=== PATIENT | female | born 1950 | race Asian ===

== ENCOUNTER 2023-06-18 13:48 | Inpatient (IN) | payer MEDICARE ==
[~2023-06-18] VITALS: Ht 160 cm; Wt 77.1 kg
[2023-06-18] MEDS ORDERED: AZAT50TA18 PO (14:01)
[2023-06-18] MEDS ORDERED: AMLO10TA59 PO (14:01)
[2023-06-18] MEDS ORDERED: METF-440 PO (14:01)
[2023-06-18] MEDS ORDERED: ATOR10TA PO (14:01)
[2023-06-18] MEDS ORDERED: DULO60CA45 PO (14:01)
[2023-06-18] MEDS ORDERED: HYDR-894 PO (14:01)
[2023-06-18] MEDS ORDERED: CEPH500C2 PO (14:01)
[2023-06-18] MEDS ORDERED: GABA-532 PO (14:01)
[2023-06-18 15:05] LABS: CALCIUM 9.2 mg/dL (8.5-10.1); CARBON DIOXIDE 18 mmol/L (21-32); CHLORIDE 99 mmol/L (98-107); CREATININE 0.9 mg/dL (0.6-1.3); GLUCOSE 118 mg/dL (74-106); SODIUM SERUM 137 mmol/L (136-145); UREA NITROGEN, BLOOD 6 mg/dL (7-18)
[2023-06-18 15:06] LABS: POTASSIUM 2.8 mmol/L (3.5-5.1)
[2023-06-18 15:07] LABS: BASOPHILS % (AUTO) 0.4 % (0.0-2.0); DIFFERENTIAL COMMENT 0; EOSINOPHILS # (AUTO) 0.1 K/uL (0.0-0.7); EOSINOPHILS % (AUTO) 0.8 % (0.0-7.0); HEMATOCRIT 44.9 % (31.2-41.9); HEMOGLOBIN 14.7 g/dL (10.9-14.3); LYMPHOCYTES # (AUTO) 1.1 K/uL (0.8-4.8); LYMPHOCYTES % (AUTO) 11.2 % (20.5-51.5); MEAN CORPUSCULAR HEMOGLOBIN 30.7 uug (24.7-32.8); MEAN CORPUSCULAR HGB CONC 33 g/dL (32.3-35.6); MEAN CORPUSCULAR VOLUME 93.6 fL (75.5-95.3); MONOCYTES # (AUTO) 0.7 K/uL (0.1-1.30); NEUTROPHILS # (AUTO) 7.9 K/uL (1.8-8.9); NEUTROPHILS % (AUTO) 80.6 % (38.5-71.5); PLATELET COUNT (AUTO) 502 K/uL (179-408); RED CELL DISTRIBUTION WIDTH 16.2 % (12.3-17.7); WHITE BLOOD COUNT (AUTO) 9.7 K/uL (3.8-11.8)
[2023-06-18 15:20] LABS: ALANINE AMINOTRANSFERASE < 6 U/L (14-59); ALBUMIN 2.7 g/dL (3.4-5.0); ALKALINE PHOSPHATASE 82 U/L (50-136); ASPARTATE AMINOTRANSFERASE 12 U/L (15-37); BILIRUBIN,DIRECT 0.3 mg/dL (0.0-0.2); BILIRUBIN,TOTAL 0.7 mg/dL (0.2-1.0); LIPASE 11 U/L (16-77)
[2023-06-18] MEDS: IV NORMAL SALINE 500 ML BAG IV ONE (15:25)
[2023-06-18] MEDS ORDERED: POTASSIUM CHLORIDE 200 ML ONE (16:41)
[2023-06-18] MEDS ORDERED: METOCLOPRAMIDE HCL 10 MG/2 ML VIAL ONE (16:41)
[2023-06-18] MEDS ORDERED: diphenhydrAMINE 50 MG/1 ML VIAL ONE (16:41)
[2023-06-18] MEDS: diphenhydrAMINE 50 MG/1 ML VIAL IV ONE (16:55)
[2023-06-18] MEDS: POTASSIUM CHLORIDE 50 ML IV SCH (16:56)
[2023-06-18] MEDS: METOCLOPRAMIDE HCL 10 MG/2 ML VIAL IV ONE (16:56)
[2023-06-18] MEDS: IV NS 1000 ML 1,000 ML IV ONE (16:56)
[2023-06-18] MEDS ORDERED: ONDANSETRON 4 MG/2 ML VIAL IV PRN (20:00)
[2023-06-18] MEDS ORDERED: POTASSIUM CHLORIDE 20 MEQ in IV 1/2NS 1000 ML 1,000 ML IV PRN (20:00)
[2023-06-18] MEDS ORDERED: MORPHINE SULFATE 2 MG/1 ML DISP.SYRIN IV PRN (20:00)
[2023-06-18] MEDS ORDERED: MAGNESIUM SULFATE/D5W 200 ML ONE (20:34)
[2023-06-18] MEDS: POTASSIUM CHLORIDE 20 MEQ TAB.PRT.SR PO ONE (21:00)
[2023-06-18 21:20] VITALS: BP 155/86; TEMP 98.7; O2SAT 97
[2023-06-18] MEDS ORDERED: IV 1/2 NS + KCL 20 MEQ BAG 1,000 ML ONE (21:28)
[2023-06-18] MEDS: METOPROLOL TARTRATE 25 MG TABLET PO SCH (21:44)
[2023-06-18] MEDS: ATORVASTATIN 10 MG TABLET PO SCH (21:46)
[2023-06-18] MEDS: MAGNESIUM SULFATE 2 GM in IV DEXTROSE 5% 100 ML IV ONE (21:49)
[2023-06-18] MEDS: IV 1/2 NS + KCL 20 MEQ BAG 1,000 ML IV PRN (21:50)
[2023-06-18] MEDS ORDERED: PIPERACILLIN SODIUM/TAZOBACTAM 3.375 G in IV DEXTROSE 5% 50 ML IV SCH (22:00)
[2023-06-18] MEDS ORDERED: PIPERACILLIN SODIUM/TAZO 3.375 GM VIAL ONE (22:42)
[2023-06-18] MEDS: PIPERACILLIN SODIUM/TAZOBACTAM 3.375 G in IV DEXTROSE 5% 50 ML IV SCH (22:49)
[2023-06-19] VITALS (7 sets, daily range): BP systolic 101–133; BP diastolic 51–65; TEMP 98.1–98.9; O2SAT 94–95
[2023-06-19] MEDS ORDERED: PIPERACILLIN SODIUM/TAZO 3.375 GM VIAL ONE (04:58)
[2023-06-19 06:13] LABS: *CLARITY,URINE CLEAR (CLEAR); *COLOR,URINE YELLOW (YELLOW); *KETONES,URINE 4+ (NEGATIVE); *PROTEIN,URINE 2+ (NEGATIVE); *UROBILINOGEN,URINE 0.2 E.U./dl (NORMAL); LEUKOCYTE ESTERASE ,URINE 1+ (NEGATIVE); NITRITE, URINE NEGATIVE (NEGATIVE); UGLUCOSE NEGATIVE (NEGATIVE)
[2023-06-19] MEDS: PANTOPRAZOLE SODIUM 40 MG TABLET.DR PO SCH (06:17)
[2023-06-19 06:40] LABS: *BILIRUBIN,URIN 2+ (NEGATIVE); *BLOOD, URINE TRACE (NEGATIVE)
[2023-06-19 06:48] LABS: BACTERIA,URINE FEW /HPF (NONE SEEN); SQUAMOUS EPITHELIAL CELL,UR FEW /HPF (NONE SEEN); WBC,URINE 50-80 /HPF (0-3); YEAST,URINE BUDDING YEAST /HPF (NONE SEEN)
[2023-06-19 07:53] LABS: BASOPHILS # (AUTO) 0.1 K/UL (0.0-0.2); BASOPHILS % (AUTO) 0.5 % (0.0-2.0); EOSINOPHILS # (AUTO) 0.2 K/uL (0.0-0.7); EOSINOPHILS % (AUTO) 1.8 % (0.0-7.0); HEMATOCRIT 36.2 % (31.2-41.9); HEMOGLOBIN 12.2 g/dL (10.9-14.3); LYMPHOCYTES % (AUTO) 9.3 % (20.5-51.5); MEAN CORPUSCULAR HEMOGLOBIN 31.1 uug (24.7-32.8); MEAN CORPUSCULAR HGB CONC 34 g/dL (32.3-35.6); MEAN CORPUSCULAR VOLUME 92.3 fL (75.5-95.3); MONOCYTES # (AUTO) 1.2 K/uL (0.1-1.30); MONOCYTES % (AUTO) 10.9 % (0.0-11.0); NEUTROPHILS # (AUTO) 8.4 K/uL (1.8-8.9); NEUTROPHILS % (AUTO) 77.5 % (38.5-71.5); PLATELET COUNT (AUTO) 429 K/uL (179-408); RED BLOOD CELL COUNT(AUTO) 3.92 MIL/uL (3.63-4.92); RED CELL DISTRIBUTION WIDTH 16.2 % (12.3-17.7); WHITE BLOOD COUNT (AUTO) 10.8 K/uL (3.8-11.8)
[2023-06-19] MEDS: METFORMIN HCL 500 MG TABLET PO SCH (08:01)
[2023-06-19 08:13] LABS: DIFFERENTIAL COMMENT 1
[2023-06-19 08:18] LABS: ALBUMIN 2.1 g/dL (3.4-5.0); ALKALINE PHOSPHATASE 69 U/L (50-136); ASPARTATE AMINOTRANSFERASE 9 U/L (15-37); CALCIUM 8.6 mg/dL (8.5-10.1); CARBON DIOXIDE 20 mmol/L (21-32); CHLORIDE 101 mmol/L (98-107); GLUCOSE 95 mg/dL (74-106); MAGNESIUM 1.4 mg/dL (1.8-2.4); PHOSPHOROUS 2.2 mg/dL (2.5-4.9); SODIUM SERUM 136 mmol/L (136-145); TOTAL PROTEIN, SERUM 6.6 g/dL (6.4-8.2); UREA NITROGEN, BLOOD 5 mg/dL (7-18)
[2023-06-19 08:23] LABS: THYROID STIMULATING HORMONE 1.206 mIU/mL (0.358-3.740)
[2023-06-19 08:57] LABS: ALANINE AMINOTRANSFERASE < 6 U/L (14-59)
[2023-06-19] MEDS: GABAPENTIN 300 MG CAPSULE PO SCH (09:01)
[2023-06-19] MEDS: AMLODIPINE 10 MG TABLET PO SCH (09:01)
[2023-06-19] MEDS: DULOXETINE 60 MG CAPSULE.DR PO SCH (09:01)
[2023-06-19] MEDS: POTASSIUM CHLORIDE 50 ML IV SCH (09:40)
[2023-06-19] MEDS: MAGNESIUM SULFATE/D5W 100 ML IV SCH (09:40)
[2023-06-19 10:17] LABS: POTASSIUM 2.7 mmol/L (3.5-5.1)
[2023-06-19] MEDS: ENOXAPARIN SODIUM 40 MG/0.4 ML DISP.SYRIN SQ SCH (10:58)
[2023-06-19] MEDS ORDERED: ATOR40TA PO (11:29)
[2023-06-19] MEDS ORDERED: DIPH50CA38 PO (11:30)
[2023-06-19] MEDS ORDERED: GABA300C PO (11:33)
[2023-06-19] MEDS ORDERED: ERGO500040 PO (11:34)
[2023-06-19] MEDS: ACETAMINOPHEN 325 MG TABLET PO PRN (13:14)
[2023-06-19 14:04] LABS: *OCCULT BLOOD STOOL POSITIVE (NEGATIVE)
[2023-06-19] MEDS: PIPERACILLIN SODIUM/TAZOBACTAM 3.375 G in IV DEXTROSE 5% 100 ML IV SCH (14:29)
[2023-06-19] MEDS: POTASSIUM PHOSPHATE MM 15 MMOL in IV NORMAL SALINE 250 ML IV ONE (14:29)
[2023-06-19] MEDS: ATORVASTATIN 40 MG TABLET PO SCH (20:34)
[2023-06-19] MEDS: FLUCONAZOLE 100 MG TABLET PO SCH (22:15)
[2023-06-19] MEDS: METRONIDAZOLE 500 MG TABLET PO SCH (22:15)
[2023-06-20] VITALS: BP 104/45; TEMP 100.6; O2SAT 93
[2023-06-20] MEDS: VANCOMYCIN FOR PO/GT/NG USE PO SCH ×2 (00:24→12:35)
[2023-06-20 04:00] VITALS: BP 110/58; TEMP 101; O2SAT 95
[2023-06-20 06:46] LABS: CALCIUM 8.1 mg/dL (8.5-10.1); CARBON DIOXIDE 24 mmol/L (21-32); CHLORIDE 102 mmol/L (98-107); CREATININE 0.9 mg/dL (0.6-1.3); GLUCOSE 97 mg/dL (74-106); MAGNESIUM 1.8 mg/dL (1.8-2.4); POTASSIUM 3.2 mmol/L (3.5-5.1); SODIUM SERUM 135 mmol/L (136-145); UREA NITROGEN, BLOOD 3 mg/dL (7-18)
[2023-06-20 08:00] VITALS: BP 126/57; TEMP 98.3; O2SAT 94
[2023-06-20] MEDS ORDERED: VANCOMYCIN FOR PO/GT/NG USE PO SCH (09:15)
[2023-06-20 11:37] VITALS: BP 120/63; TEMP 99.3; O2SAT 92
[2023-06-20] MEDS: POTASSIUM CHLORIDE 20 MEQ TAB.PRT.SR PO ONE (14:31)
[2023-06-20 16:13] VITALS: BP 120/66; TEMP 99.2; O2SAT 94
[2023-06-20] MEDS: MUPIROCIN 2% OINT 22 GM TUBE NS SCH (21:00)
[2023-06-20 22:26] VITALS: BP 106/70; TEMP 98.6; O2SAT 100
[2023-06-21] VITALS (7 sets, daily range): BP systolic 114–127; BP diastolic 61–72; TEMP 97.5–98.6; O2SAT 94–98
[2023-06-21 07:52] LABS: BASOPHILS % (AUTO) 0.7 % (0.0-2.0); EOSINOPHILS # (AUTO) 0.6 K/uL (0.0-0.7); HEMOGLOBIN 12.7 g/dL (10.9-14.3); LYMPHOCYTES # (AUTO) 1.8 K/uL (0.8-4.8); LYMPHOCYTES % (AUTO) 27.3 % (20.5-51.5); MEAN CORPUSCULAR HEMOGLOBIN 30.7 uug (24.7-32.8); MEAN CORPUSCULAR HGB CONC 33 g/dL (32.3-35.6); MEAN CORPUSCULAR VOLUME 92.3 fL (75.5-95.3); MONOCYTES % (AUTO) 15.4 % (0.0-11.0); NEUTROPHILS # (AUTO) 3.2 K/uL (1.8-8.9); NEUTROPHILS % (AUTO) 47.6 % (38.5-71.5); PLATELET COUNT (AUTO) 439 K/uL (179-408); RED BLOOD CELL COUNT(AUTO) 4.12 MIL/uL (3.63-4.92); RED CELL DISTRIBUTION WIDTH 16.6 % (12.3-17.7); WHITE BLOOD COUNT (AUTO) 6.6 K/uL (3.8-11.8)
[2023-06-21 08:17] LABS: CALCIUM 8.6 mg/dL (8.5-10.1); CREATININE 0.8 mg/dL (0.6-1.3); MAGNESIUM 1.8 mg/dL (1.8-2.4); PHOSPHOROUS 2.6 mg/dL (2.5-4.9)
[2023-06-21 08:22] LABS: DIFFERENTIAL COMMENT 1
[2023-06-21] MEDS ORDERED: IV NS 1000 ML 1,000 ML IV PRN (09:30)
[2023-06-21] MEDS ORDERED: QUETIAPINE FUMARATE 25 MG TABLET PO PRN (09:30)
[2023-06-21 12:01] LABS: ANISOCYTOSIS 1+; BAND % (MANUAL) 1 % (0-10); EOSINOPHILS % (MANUAL) 7 % (0-8); LYMPHOCYTES % (MANUAL) 28 % (20-40); MONOCYTES % (MANUAL) 12 % (2-10); NEUTROPHILS % (MANUAL) 52 % (42-75); PLATELET ESTIMATE ADEQUATE
[2023-06-21] MEDS: ERGOCALCIFEROL 50,000 UNIT CAPSULE PO SCH (12:54)
[2023-06-21] MEDS: OLANZAPINE 10 MG VIAL IM ONE (12:55)
[2023-06-21] MEDS ORDERED: GABAPENTIN 300 MG CAPSULE PO SCH (13:00)
[2023-06-21] MEDS ORDERED: MUPIROCIN 2% OINT 22 GM TUBE TP SCH (21:00)
[2023-06-22] VITALS: BP 138/68; TEMP 98.8; O2SAT 97
[2023-06-22 04:19] VITALS: BP 98/60; TEMP 98.5; O2SAT 97
[2023-06-22 07:02] LABS: BASOPHILS % (AUTO) 0.5 % (0.0-2.0); EOSINOPHILS # (AUTO) 0.7 K/uL (0.0-0.7); EOSINOPHILS % (AUTO) 11.4 % (0.0-7.0); HEMATOCRIT 39.6 % (31.2-41.9); HEMOGLOBIN 12.9 g/dL (10.9-14.3); LYMPHOCYTES # (AUTO) 1.1 K/uL (0.8-4.8); LYMPHOCYTES % (AUTO) 17.8 % (20.5-51.5); MEAN CORPUSCULAR HEMOGLOBIN 30.7 uug (24.7-32.8); MEAN CORPUSCULAR HGB CONC 33 g/dL (32.3-35.6); MEAN CORPUSCULAR VOLUME 94.3 fL (75.5-95.3); MONOCYTES % (AUTO) 16.5 % (0.0-11.0); NEUTROPHILS # (AUTO) 3.2 K/uL (1.8-8.9); NEUTROPHILS % (AUTO) 53.8 % (38.5-71.5); PLATELET COUNT (AUTO) 380 K/uL (179-408); WHITE BLOOD COUNT (AUTO) 5.9 K/uL (3.8-11.8)
[2023-06-22 07:21] LABS: DIFFERENTIAL COMMENT 1
[2023-06-22 07:39] LABS: CALCIUM 8.3 mg/dL (8.5-10.1); CARBON DIOXIDE 24 mmol/L (21-32); CHLORIDE 105 mmol/L (98-107); CREATININE 0.8 mg/dL (0.6-1.3); GLUCOSE 127 mg/dL (74-106); MAGNESIUM 1.5 mg/dL (1.8-2.4); PHOSPHOROUS 2.1 mg/dL (2.5-4.9); POTASSIUM 3.9 mmol/L (3.5-5.1); SODIUM SERUM 137 mmol/L (136-145); UREA NITROGEN, BLOOD 3 mg/dL (7-18)
[2023-06-22 07:44] LABS: LYMPHOCYTES % (MANUAL) 0 % (20-40); NEUTROPHILS % (MANUAL) 0 % (42-75)
[2023-06-22 08:00] VITALS: BP 111/64; TEMP 98.8; O2SAT 98
[2023-06-22] MEDS: REMEDY ESSENTIAL ZINC PASTE 113 GM TOP SCH (10:10)
[2023-06-22] MEDS: MAGNESIUM SULFATE/D5W 100 ML IV SCH (10:13)
[2023-06-22 12:00] VITALS: BP 111/64; TEMP 98.8; O2SAT 98
[2023-06-22] MEDS: NEUTRA PHOS PACKET PO ONE (15:55)
[2023-06-22 16:00] VITALS: BP 125/70; TEMP 98; O2SAT 98
[2023-06-22] MEDS: ARGININE/GLUTAMINE/CALCIUM BMB 1 EACH POWD.PACK PO SCH (16:05)
[2023-06-22] MEDS: GLUCERNA SHAKE 237 ML CAN PO SCH (16:05)
[2023-06-22 19:30] VITALS: BP 115/67; TEMP 99; O2SAT 97
[2023-06-23 01:00] VITALS: BP 110/58; TEMP 98.4; O2SAT 97
[2023-06-23] MEDS: GUAIFENESIN/CODEINE 5 ML LIQUID UDC PO PRN (03:06)
[2023-06-23 06:00] VITALS: BP 117/71; TEMP 97.9; O2SAT 98
[2023-06-23 07:09] LABS: HEMATOCRIT 42.1 % (31.2-41.9); HEMOGLOBIN 13.6 g/dL (10.9-14.3); LYMPHOCYTES % (AUTO) 24.4 % (20.5-51.5); MEAN CORPUSCULAR HEMOGLOBIN 30.8 uug (24.7-32.8); MEAN CORPUSCULAR HGB CONC 32 g/dL (32.3-35.6); MEAN CORPUSCULAR VOLUME 95.5 fL (75.5-95.3); NEUTROPHILS % (AUTO) 46.5 % (38.5-71.5); PLATELET COUNT (AUTO) 392 K/uL (179-408); RED CELL DISTRIBUTION WIDTH 16.8 % (12.3-17.7); WHITE BLOOD COUNT (AUTO) 5.8 K/uL (3.8-11.8)
[2023-06-23 07:10] LABS: BASOPHILS % (AUTO) 0.5 % (0.0-2.0); EOSINOPHILS # (AUTO) 0.8 K/uL (0.0-0.7); EOSINOPHILS % (AUTO) 13.2 % (0.0-7.0); LYMPHOCYTES # (AUTO) 1.4 K/uL (0.8-4.8); MONOCYTES # (AUTO) 0.9 K/uL (0.1-1.30); MONOCYTES % (AUTO) 15.4 % (0.0-11.0); NEUTROPHILS # (AUTO) 2.7 K/uL (1.8-8.9)
[2023-06-23 07:18] LABS: CALCIUM 8.4 mg/dL (8.5-10.1); CARBON DIOXIDE 27 mmol/L (21-32); CHLORIDE 104 mmol/L (98-107); CREATININE 0.8 mg/dL (0.6-1.3); GLUCOSE 120 mg/dL (74-106); MAGNESIUM 1.7 mg/dL (1.8-2.4); POTASSIUM 3.9 mmol/L (3.5-5.1); SODIUM SERUM 138 mmol/L (136-145); UREA NITROGEN, BLOOD 9 mg/dL (7-18)
[2023-06-23 07:27] LABS: DIFFERENTIAL COMMENT 1
[2023-06-23 08:41] LABS: LYMPHOCYTES % (MANUAL) 0 % (20-40); NEUTROPHILS % (MANUAL) 0 % (42-75)
[2023-06-23] MEDS ORDERED: VANC125C11 PO (10:43)
[2023-06-23] MEDS ORDERED: METR500T PO (10:43)
[2023-06-23] MEDS ORDERED: METO25TA6 PO (10:43)
[2023-06-23 11:52] VITALS: BP 103/57; TEMP 97.8; O2SAT 98
[2023-06-23] MEDS: MAGNESIUM OXIDE 400 MG TABLET PO ONE (13:04)
[2023-06-23 16:02] VITALS: BP 98/58; TEMP 98.3; O2SAT 97
[2023-06-23] MEDS: NEUTRA PHOS PACKET PO ONE (17:14)
== END 2023-06-23 17:45 | DRG 372 ==
LOC: ER 13:48 → TELE3 19:43 → MEDSURG3 06-22 14:05
PROVIDERS: ADMIT Internal Medicine; ATTEND Nurse Practitioner Acute Care
PROC: 05HY33Z Insertion of Infusion Device into Upper Vein, Percutaneous Approach (ICD-10-PCS; principal; 2023-06-19)
DX: A04.72 Enterocolitis due to Clostridium difficile, not specified as recurrent (principal); B37.49 Other urogenital candidiasis; E87.20 Acidosis, unspecified; D68.59 Other primary thrombophilia; E87.1 Hypo-osmolality and hyponatremia; E86.0 Dehydration; E87.6 Hypokalemia; Z22.322 Carrier or suspected carrier of Methicillin resistant Staphylococcus aureus; E66.01 Morbid (severe) obesity due to excess calories; Z68.30 Body mass index [BMI] 30.0-30.9, adult; E78.5 Hyperlipidemia, unspecified; Z79.84 Long term (current) use of oral hypoglycemic drugs; Z90.710 Acquired absence of both cervix and uterus; E11.9 Type 2 diabetes mellitus without complications
CPT/HCPCS: 36415; 70030-TC; 71045; 83605; 83690; 83735; 84100; 84443; 85025; 87040; 89055; 93005; A6209; A6213; C1758; G0378; J1200; J1650; J2358; J2543; J2765; J3370; J3475; J3480; J3490; J7040